=== PATIENT | female | born 1935 | race Caucasian/White ===

== ENCOUNTER → 2017-10-31 | Outpatient (CLI) | payer MEDICARE | LOC: CFH 09:55 | PROVIDERS: ATTEND Internal Medicine | DX: N64.89 Other specified disorders of breast (principal) | CPT/HCPCS: 77065 ==

== ENCOUNTER → 2018-06-28 | Outpatient (CLI) | payer MEDICARE ==
[~2018-06-28] MED LIST: OMNIPAQUE 350 MG/ML, 100ML BOTTLE ONE
== END | disposition home or self-care (01) ==
LOC: CFH 09:34
PROVIDERS: ATTEND Surgery
DX: R10.9 Unspecified abdominal pain (principal); R19.05 Periumbilic swelling, mass or lump
CPT/HCPCS: 74177; Q9967

== ENCOUNTER → 2018-09-05 | Outpatient (CLI) | payer MEDICARE | END | disposition home or self-care (01) | LOC: CFH 12:07 | PROVIDERS: ATTEND Internal Medicine | DX: N64.4 Mastodynia (principal) | CPT/HCPCS: 76641; 77065; G0279 ==

== ENCOUNTER → 2019-08-01 | Outpatient (CLI) | payer MEDICARE | END | disposition home or self-care (01) | LOC: CFH 09:46 | PROVIDERS: ATTEND Registered Nurse | DX: T81.89XA Other complications of procedures, not elsewhere classified, initial encounter (principal); Y83.8 Other surgical procedures as the cause of abnormal reaction of the patient, or of later complication, without mention of misadventure at the time of the procedure | CPT/HCPCS: 74160; 76705; Q9967 ==

== ENCOUNTER → 2019-10-17 | Outpatient (CLI) | payer MEDICARE | END | disposition home or self-care (01) | LOC: CFH 09:59 | PROVIDERS: ATTEND Student in an Organized Health Care Education/Training Program | DX: K91.872 Postprocedural seroma of a digestive system organ or structure following a digestive system procedure (principal); M47.816 Spondylosis without myelopathy or radiculopathy, lumbar region; K59.00 Constipation, unspecified; K80.20 Calculus of gallbladder without cholecystitis without obstruction; K83.8 Other specified diseases of biliary tract; K76.89 Other specified diseases of liver; N85.8 Other specified noninflammatory disorders of uterus; Y83.8 Other surgical procedures as the cause of abnormal reaction of the patient, or of later complication, without mention of misadventure at the time of the procedure; Z90.89 Acquired absence of other organs; Z79.899 Other long term (current) drug therapy; Z88.5 Allergy status to narcotic agent | CPT/HCPCS: 74177; Q9967 ==

== ENCOUNTER 2019-10-29 11:16 | Day surgery (SDC) | payer MEDICARE ==
[~2019-10-29] VITALS: Ht 166.4 cm; Wt 65.0 kg
[~2019-10-29 11:16] MED LIST changes: +ACET325T14 PO; +ASPI-691 PO; +LACT1CAP35 PO; +LEVO50TA5 PO; +LOSA50TA14 PO; +LOVA20TA2 PO; +OMEP-110 PO; -OMNIPAQUE 350 MG/ML, 100ML BOTTLE ONE; +SERT50TA28 PO
[2019-10-29 12:05] VITALS: BP 155/71
[2019-10-29] MEDS ORDERED: LACTATED RINGERS 1,000 ML IV SCH (12:07)
[2019-10-29] MEDS ORDERED: CEFAZOLIN 1,000 MG ONE (12:32)
[2019-10-29] MEDS ORDERED: LIDOCAINE PF 2%, 5ML ONE (12:32)
[2019-10-29] MEDS ORDERED: BUPIVACAINE/PF 0.5% ONE (13:19)
[2019-10-29] MEDS ORDERED: BUPIVACAINE/PF 0.25% ONE (13:19)
[2019-10-29] MEDS ORDERED: EPINEPHRINE 1 MG/ML, 1ML ONE (13:19)
[2019-10-29] MEDS ORDERED: PROPOFOL 50 ML ONE (13:28)
[2019-10-29] MEDS ORDERED: EPHEDRINE 50 MG/ML, 1ML ONE (13:53)
[2019-10-29] MEDS ORDERED: LIDOCAINE-MPF 2% ,5ML ONE (13:58)
[2019-10-29] MEDS ORDERED: HYDROmorphone 2 MG/ML, 1ML IVPush PRN (14:00)
[2019-10-29] MEDS ORDERED: EPHEDRINE 50 MG/ML, 1ML IVPush PRN (14:00)
[2019-10-29] MEDS ORDERED: ACETAMINOPHEN 325 MG TABLET PO PRN (14:00)
[2019-10-29] MEDS ORDERED: PROMETHAZINE 25 MG/ML, 1ML IV PRN (14:00)
[2019-10-29] MEDS ORDERED: MEPERIDINE/PF 25MG/ML,1ML IVPush PRN (14:00)
[2019-10-29] MEDS ORDERED: hydrALAzine 20 MG/ML, 1ML IV PRN (14:00)
[2019-10-29] MEDS ORDERED: FENTANYL PF 100 MCG/2ML IV PRN (14:00)
[2019-10-29] MEDS ORDERED: ONDANSETRON 2MG/ML, 2ML IV PRN (14:00)
[2019-10-29] MEDS ORDERED: LABETALOL 5MG/ML, 20ML IV PRN (14:00)
[2019-10-29] MEDS ORDERED: OXYcodone 5 MG/5 ML ORAL.SOL UDC PO PRN (14:00)
== END 2019-10-29 15:55 | disposition home or self-care (01) ==
LOC: OUT 11:16
PROVIDERS: ATTEND Student in an Organized Health Care Education/Training Program
DX: T81.42XA Infection following a procedure, deep incisional surgical site, initial encounter (principal); K21.9 Gastro-esophageal reflux disease without esophagitis; I10 Essential (primary) hypertension; E78.5 Hyperlipidemia, unspecified; G43.909 Migraine, unspecified, not intractable, without status migrainosus; E89.0 Postprocedural hypothyroidism; Z79.1 Long term (current) use of non-steroidal anti-inflammatories (NSAID); Z79.899 Other long term (current) drug therapy; Z88.5 Allergy status to narcotic agent; Z98.890 Other specified postprocedural states; Z98.51 Tubal ligation status; Z82.49 Family history of ischemic heart disease and other diseases of the circulatory system; Z82.3 Family history of stroke; Y83.8 Other surgical procedures as the cause of abnormal reaction of the patient, or of later complication, without mention of misadventure at the time of the procedure
CPT/HCPCS: 49999; 93005; J0171; J0690; J2704; J7120; J3490

== ENCOUNTER → 2019-11-05 | Outpatient (CLI) | payer MEDICARE | END | disposition home or self-care (01) | LOC: WOUND 08:03 | PROVIDERS: ATTEND Internal Medicine Infectious Disease | DX: T85.79XA Infection and inflammatory reaction due to other internal prosthetic devices, implants and grafts, initial encounter (principal); T81.89XA Other complications of procedures, not elsewhere classified, initial encounter; E78.5 Hyperlipidemia, unspecified; I10 Essential (primary) hypertension; E03.9 Hypothyroidism, unspecified; M81.0 Age-related osteoporosis without current pathological fracture; Y83.8 Other surgical procedures as the cause of abnormal reaction of the patient, or of later complication, without mention of misadventure at the time of the procedure; Y92.89 Other specified places as the place of occurrence of the external cause | CPT/HCPCS: 87070; 87205; 97597; G0463 ==

== ENCOUNTER → 2019-11-12 | Outpatient (CLI) | payer MEDICARE | END | disposition home or self-care (01) | LOC: WOUND 08:19 | PROVIDERS: ATTEND Nurse Practitioner Family | DX: T81.31XD Disruption of external operation (surgical) wound, not elsewhere classified, subsequent encounter (principal); E78.5 Hyperlipidemia, unspecified; I10 Essential (primary) hypertension; E03.9 Hypothyroidism, unspecified; M81.0 Age-related osteoporosis without current pathological fracture; K21.9 Gastro-esophageal reflux disease without esophagitis; G43.909 Migraine, unspecified, not intractable, without status migrainosus; Z79.1 Long term (current) use of non-steroidal anti-inflammatories (NSAID); Z79.899 Other long term (current) drug therapy; Z88.5 Allergy status to narcotic agent; Y83.8 Other surgical procedures as the cause of abnormal reaction of the patient, or of later complication, without mention of misadventure at the time of the procedure | CPT/HCPCS: 97597 ==

== ENCOUNTER → 2020-07-16 | Outpatient (CLI) | payer MEDICARE | END | disposition home or self-care (01) | LOC: CFH 12:22 | PROVIDERS: ATTEND Internal Medicine | DX: Z12.31 Encounter for screening mammogram for malignant neoplasm of breast (principal) | CPT/HCPCS: 76641; 77063; 77067 ==

== ENCOUNTER 2021-02-05 17:30 | Emergency (ER) | payer MEDICARE ==
[~2021-02-05] VITALS: Ht 165.1 cm; Wt 71.0 kg
[2021-02-05 17:59] VITALS: BP 137/90
--- NOTE | 2021-02-05 18:23 | NUR ---
PT TO CT
[2021-02-05] MEDS ORDERED: LIDOCAINE-MPF 1%, 5ML ONE (19:01)
[2021-02-05] MEDS ORDERED: DIPH,PERTUSS(ACELL),TET VAC/PF 0.5 ML IM-VACC ONE ×2 (19:30→20:37)
--- NOTE | 2021-02-05 19:30 | NUR ---
PA TO BEDSIDE TO EVAL WOUND. AND NUMBED IT WITH LIDOCAINE 1% AND PT TOLERATED WELL.
--- NOTE | 2021-02-05 20:00 | NUR ---
LEFT FOREHEAD LAC CLEANED WITH 1 LITER STERILE WATER, AND PT TOLERATED WELL. SUTURES PLACED BY PA AND EDGES APPROXIMATED AND NO BLEEDING NOTED. NEOSPORIN TO WOUND AND 2X2 DRESSINGS IN PLACE AND PT A&OX4, GCS 15. TETANUS SHOT GIVEN, AND DOCUMENTED FOR PT ON THEIR D/C PAPERS. F/U AND D/C INSTRUCTIONS GIVEN TO PT AND SHE V/U. AND AMBULATED TO DC
[2021-02-05] MEDS ORDERED: NEOSPORIN OINT. PKT 1 PACKET ONE (20:24)
== END 2021-02-05 21:02 | disposition home or self-care (01) ==
LOC: ED 19:20
DX: S01.81XA Laceration without foreign body of other part of head, initial encounter (principal); S06.9X1A Unspecified intracranial injury with loss of consciousness of 30 minutes or less, initial encounter; W18.30XA Fall on same level, unspecified, initial encounter; Y93.01 Activity, walking, marching and hiking; Y92.410 Unspecified street and highway as the place of occurrence of the external cause; Y99.8 Other external cause status
CPT/HCPCS: 12052; 70450; 70486; 72125; 99285